=== PATIENT | male | born 1945 | race Caucasian/White ===

== ENCOUNTER 2018-11-27 23:19 | Inpatient (IN) | payer MEDICARE, OTHER | END 2018-11-30 14:15 | disposition home or self-care (01) | LOC: MED 3N 11-29 05:13 → ER 23:19 → ED HOLD 11-28 01:00 → PCU 3S 11-28 04:02 | DX: I21.4 Non-ST elevation (NSTEMI) myocardial infarction (principal); Z95.1 Presence of aortocoronary bypass graft ==